=== PATIENT | female | born 1930 | race Caucasian/White ===

== ENCOUNTER → 2017-09-06 | Outpatient (CLI) | payer OTHER ==
[2017-09-06 12:54] LABS: BASO % 0.3 %; BASO ABS # 0.02 K/uL (0-0.2); COMPLETE YES; EOS % 11.1 %; EOS ABS # 0.74 K/uL (0-0.5); HEMATOCRIT 39.7 % (37-47); IG# 0.03 K/uL (0.00-0.02); IG% 0.4 %; LYMPH % 16.9 %; LYMPH ABS # 1.13 K/uL (1.2-3.4); MEAN CELL VOLUME 92.8 fL (80-100); MEAN CORPUSCULAR HEMOGLOBIN 30.4 pg (25-34); MEAN CORPUSCULAR HGB CONC 32.7 g/dl (32-36); MEAN PLATELET VOLUME 10.3 fL (7.4-10.4); MONO % 9.6 %; MONO ABS # 0.64 K/uL (0.11-0.59); NEUT % 61.7 %; NEUT ABS # 4.13 K/uL (1.4-6.5); PLATELET COUNT 218 K/uL (130-400); RED BLOOD COUNT 4.28 M/uL (4.2-5.4); RED CELL DISTRIBUTION WIDTH CV 13.2 % (11.5-14.5); RED CELL DISTRIBUTION WIDTH SD 44.6 fL (36.4-46.3); WHITE BLOOD COUNT 6.69 K/uL (4.8-10.8)
[2017-09-06 13:20] LABS: GLUCOSE 113 mg/dl (70-99)
[2017-09-06 13:20] LABS: ALBUMIN 3.6 gm/dl (3.4-5.0); ALT/SGPT 23 U/L (12-78); BLOOD UREA NITROGEN 17 mg/dl (7-18); BUN/CREATININE RATIO 25.8 (10-20); CALCIUM 9.2 mg/dl (8.5-10.1); CARBON DIOXIDE 29 mmol/L (21-32); CHLORIDE 104 mmol/L (98-107); CREATININE 0.64 mg/dl (0.60-1.20); EstGFR CKD-E AfrAm 94.3; EstGFR CKD-E NON AfrAm 81.4; POTASSIUM 4.1 mmol/L (3.5-5.1); SODIUM 139 mmol/L (136-145)
[2017-09-06 13:23] LABS: ALB/GLOB RATIO 1.1 (0.9-2); ALKALINE PHOSPHATASE 62 U/L (45-117); AST/SGOT 21 U/L (15-37)
== END | disposition home or self-care (01) ==
LOC: C.LABMFLN 10:25
DX: I10 Essential (primary) hypertension (principal)